=== PATIENT | male | born 1950 | race Caucasian/White ===

== ENCOUNTER → 2018-11-26 | Outpatient (CLI) | payer BC, MEDICARE ==
[~2018-11-26] MED LIST: BUPIVACAINE HCL 0.5% 10 ML VIAL As Ordered ONE; CONRAY-43 43% 50ML VIAL (Q9960) As Ordered ONE; GLUC500T3 OR; LISI20TA5 OR; METO-745 OR; OMEP20TA7 OR; SPIR25TA2 OR; SPIRULINA OR; VICO5TAB OR; VITA500T OR; [UNRECOGNIZED DRUG - OTHER]; [UNRECOGNIZED DRUG - OTHER] OR; flaxseed oil OR; garlic OR; methylPREDNISolone 80MG/ML SUSP 1ML VIAL (J1040) XX ONE; omnaris
--- NOTE | 2018-11-26 16:32 | REP ---
RIGHT HIP INJECTION The procedure was performed under the direct supervision of Dr. Panchal. The benefits and risks including but not limited to pain infection bleeding and anaphylaxis were explained to the patient and informed consent was obtained. The right femoral neck was localized using fluoroscopic guidance. The skin was prepped and draped in a sterile fashion. 1% lidocaine was used as a local anesthetic. Using fluoroscopic guidance a 22-gauge spinal needle was inserted and advanced to the femoral neck. 0.5 ml of Conray 43 was injected to verify placement. 6 ml of a solution containing 5 ml of 0.5% Marcaine and 1 ml of Depo-Medrol 80 mg. The needle was then removed. The patient tolerated the procedure well and there were no immediate complications. Less than 6 seconds of fluoroscopy time was utilized for this procedure. Reviewed by GISSELLE Guillaume 11/26/2018 03:48 P Electronically Signed by Moy Panchal MD 11/26/2018 04:23 P
== END ==
LOC: M RADPRO 11:18
PROVIDERS: ATTEND Orthopaedic Surgery
DX: M25.551 Pain in right hip (principal); M16.11 Unilateral primary osteoarthritis, right hip
CPT/HCPCS: 20610; 77002; Q9960